=== PATIENT | male | born 1950 | race Caucasian/White ===

== ENCOUNTER → 2018-09-02 | Outpatient (CLI) | payer OTHER | END | disposition home or self-care (01) | LOC: SHCH 12:34 | PROVIDERS: ATTEND Internal Medicine Cardiovascular Disease | DX: R01.1 Cardiac murmur, unspecified (principal); R07.9 Chest pain, unspecified | CPT/HCPCS: 93306 ==

== ENCOUNTER → 2018-12-13 | Outpatient (CLI) | payer OTHER ==
[~2018-12-13] VITALS: Ht 175.3 cm; Wt 78.0 kg
[~2018-12-13] MED LIST: REGADENOSON 0.4 MG/5 ML PF SYG IVP SCH
== END | disposition home or self-care (01) ==
LOC: SHCH 08:21
PROVIDERS: ATTEND Internal Medicine Cardiovascular Disease
DX: R07.9 Chest pain, unspecified (principal)
CPT/HCPCS: 78452; 93017; 96374; A9500 ×2; J2785

== ENCOUNTER → 2021-04-21 | Outpatient (CLI) | payer OTHER | END | disposition home or self-care (01) | LOC: SHCH 11:58 | PROVIDERS: ATTEND Internal Medicine Cardiovascular Disease | DX: I08.0 Rheumatic disorders of both mitral and aortic valves (principal); R55 Syncope and collapse | CPT/HCPCS: 93306; 93356 ==

== ENCOUNTER → 2022-06-18 | Outpatient (CLI) | payer OTHER | END | disposition home or self-care (01) | LOC: SHCH 08:50 | PROVIDERS: ATTEND Internal Medicine Cardiovascular Disease | DX: I35.0 Nonrheumatic aortic (valve) stenosis (principal) | CPT/HCPCS: 93306 ==

== ENCOUNTER 2025-08-08 07:13 | Day surgery (SDC) | payer OTHER ==
[2025-08-08] VITALS (12 sets, daily range): BP systolic 92–124; BP diastolic 55–76; PULSE 56–69; RESP 14–18; TEMP 97–97.4
[~2025-08-08] VITALS: Ht 175.3 cm; Wt 68.5 kg
[~2025-08-08 07:13] MED LIST changes: +ACET-2743 PO; +ALBU2.5V2 NEB; +ASPI-1197 PO; +BRIM5DRO21 OP; +BUDE10.2 IH; +CHOL-34 PO; +CYAN-52 PO; +FERR-82 PO; +LATA2.5D7 OS; +MONT-39 PO; +MULT-1367 PO; +PREG75 PO; -REGADENOSON 0.4 MG/5 ML PF SYG IVP SCH; +TIOT18CA3 IH
[2025-08-08] MEDS ORDERED: VITAMIN B12 IM (08:33)
[2025-08-08] MEDS: 0.9%NACL 1000ML 1,000 ML IV ONE (08:37)
== END 2025-08-08 12:20 | disposition home or self-care (01) ==
LOC: ENDO 07:13 → DAH 07:13 → ENDO 12:20
PROVIDERS: ATTEND Internal Medicine Gastroenterology
DX: D50.9 Iron deficiency anemia, unspecified (principal); R10.13 Epigastric pain; K29.80 Duodenitis without bleeding; K31.89 Other diseases of stomach and duodenum; B96.81 Helicobacter pylori [H. pylori] as the cause of diseases classified elsewhere; K29.70 Gastritis, unspecified, without bleeding; B37.81 Candidal esophagitis; K22.89 Other specified disease of esophagus; I25.10 Atherosclerotic heart disease of native coronary artery without angina pectoris; I10 Essential (primary) hypertension; I35.0 Nonrheumatic aortic (valve) stenosis; E53.8 Deficiency of other specified B group vitamins; M81.0 Age-related osteoporosis without current pathological fracture; J44.9 Chronic obstructive pulmonary disease, unspecified; K80.50 Calculus of bile duct without cholangitis or cholecystitis without obstruction; R93.2 Abnormal findings on diagnostic imaging of liver and biliary tract; Z86.73 Personal history of transient ischemic attack (TIA), and cerebral infarction without residual deficits; Z90.89 Acquired absence of other organs; Z98.42 Cataract extraction status, left eye; Z98.41 Cataract extraction status, right eye; Z99.81 Dependence on supplemental oxygen; Z79.899 Other long term (current) drug therapy
CPT/HCPCS: 43239; 45378; J7030; J2704 ×2; A4620; A4215; J3490